=== PATIENT | female | born 1965 | race Caucasian/White ===

== ENCOUNTER 2021-08-31 20:06 | Emergency (ER) | payer MEDICAID, SELFPAY ==
[2021-08-31 20:07] VITALS: BP 130/78; PULSE 78; RESP 15; TEMP 36.9; O2SAT 99; BMI 32.3
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
--- NOTE | 2021-08-31 20:25 | CT_ITS ---
EXAM: CT CERVICAL SPINE WITHOUT INTRAVENOUS CONTRAST CLINICAL INDICATION: [facility] TECHNIQUE: Helically acquired images were obtained of the cervical spine without intravenous contrast. 2D reformatted images were reviewed. This CT exam was performed using one or more of the following dose reduction techniques: automated exposure control, adjustment of the mA and/or kV according to patient size, and/or use of iterative reconstruction technique. This report was created using [employer] report generation technology. COMPARISON: None. FINDINGS: VERTEBRAE: Sclerotic lesion of posterior C3 spinous process compatible with a benign lesion such as osteoma or bone island. No fracture. No traumatic subluxation. Normal alignment. Normal craniocervical junction and cervicothoracic junction. DISCS/SPINAL CANAL/NEURAL FORAMINA: Disc space narrowing at C4-C5 and C5-C6 with mild bilateral foraminal narrowing. SOFT TISSUES: Unremarkable. No prevertebral soft tissue swelling. LYMPH NODES: Adjacent to the surgical clips in the right neck (right tracheoesophageal groove) on image 119 of series 15, there is a 1.2 x 1.3 cm soft tissue nodule, potential residual thyroid tissue versus adenopathy. THYROID: Thyroidectomy. LUNG APICES: Unremarkable as visualized. Clear. CT/Spine Cervical without Contras IMPRESSION: 1. No cervical spine fracture or spondylolisthesis. 2. Adjacent to the surgical clips in the right neck (right tracheoesophageal groove) on image 119 of series 15, there is a 1.2 x 1.3 cm soft tissue nodule, potential residual thyroid tissue versus adenopathy. Electronically Signed: Brayan Emmanuel MD ([place]) at 21:17 EST , Service support ,
[2021-08-31] MEDS: Meclizine HCl 25 MG Tablet PO (20:36)
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
[2021-08-31 20:48] LABS: Absolute Lymphocyte Count 1.74 X10^3/uL (0.83-4.51); Absolute Neutrophil Count 3.3 X10^3/uL (2.0-7.7); Basophil# 0.03 X10^3/uL; Basophil% 0.5 % (0-1); Eosinophil# 0.11 X10^3/uL; Hematocrit 35.7 % (37-47); Hemoglobin 12.1 g/dL (12.0-15.0); Lymphocyte # 1.74 X10^3/ul (0.83-4.51); Lymphocyte % 31.1 % (19-41); Mean Corp Hgb Conc 33.9 g/dL (32-36); Mean Corpuscular Hgb 32.1 pg (27.0-32.0); Mean Corpuscular Volume 94.7 fL (81-99); Mean Platelet Vol. 9.7 fl (6.2-12.0); Monocyte# 0.44 X10^3/uL; Monocyte% 7.9 % (0-10); NRBC Flagged by Analyzer 0 % (0-5); Neutrophil # 3.26 X10^3/uL (2.7-7.7); Neutrophil % 58.3 % (47-70); Platelet Count 237 K/mm3 (150-450); RBC Distribution Width CV 12.5 % (11.6-14.6); RBC Distribution Width SD 43.3 fl (35.1-43.9); Red Blood Count 3.77 M/mm3 (4.2-5.4); White Blood Count 5.6 K/mm3 (4.4-11.0)
[2021-08-31 21:02] LABS: Anion Gap 7 (5-15); BUN 14 mg/dL (7-18); BUN/Creat Ratio 15.4 RATIO (10-20); Calcium,Total 8.7 mg/dL (8.5-10.1); Chloride 105 mmol/L (98-107); Creatinine, Serum 0.91 mg/dL (0.55-1.02); EST Glomerular Filtration Rate 68 mL/min (>60); Est Glom Filt Rate - Afr Amer 83 mL/min (>60); Estimated Creatinine Clearance 66.16 ml/min; Glucose 113 mg/dL (74-106); Potassium 3.8 mmol/L (3.5-5.1); Sodium Level 140 mmol/L (136-145)
[2021-08-31 22:22] VITALS: BP 118/72; PULSE 65; RESP 18; O2SAT 98
== END 2021-08-31 22:29 | disposition home or self-care (01) ==
PROVIDERS: Emergency Provider Emergency Medicine; PCP Nurse Practitioner Family
DX: R42 Dizziness and giddiness (principal); M62.838 Other muscle spasm; M06.9 Rheumatoid arthritis, unspecified; E78.00 Pure hypercholesterolemia, unspecified; E89.0 Postprocedural hypothyroidism; F31.9 Bipolar disorder, unspecified; Z79.890 Hormone replacement therapy; Z79.1 Long term (current) use of non-steroidal anti-inflammatories (NSAID); Z79.899 Other long term (current) drug therapy
CPT/HCPCS: 70496; 70498; 72125; 80048; 85025; 99284; Q9967; A4216